=== PATIENT | male | born 1995 | race Hispanic/Latino ===

== ENCOUNTER 2022-10-06 08:35 | Emergency (ER) | payer SELFPAY ==
[2022-10-06] VITALS (8 sets, daily range): BP systolic 127–156; BP diastolic 79–98
[~2022-10-06] VITALS: Ht 160 cm; Wt 65.0 kg
== END 2022-10-06 10:34 | disposition home or self-care (01) | DRG 392 ==
LOC: ED 08:35
DX: K59.00 Constipation, unspecified (principal)